=== PATIENT | female | born 1985 | race Caucasian/White ===

== ENCOUNTER 2022-05-20 09:57 | Emergency (ER) | payer OTHER ==
[2022-05-20] MEDS ORDERED: Sodium Bicarb 50 MEQ/50 ML Abboject 8.4% SYRINGE ONE (10:00)
[2022-05-20] MEDS ORDERED: Calcium Chloride 1 GM/10 ML Abboject SYRINGE ONE (10:00)
[2022-05-20] MEDS ORDERED: EPINEPHrine 1 MG/10 ML Abboject SYRINGE ONE (10:00)
== END 2022-05-20 10:03 | disposition expired ==
LOC: EDBD 09:57 → ERS 09:57
DX: I46.9 Cardiac arrest, cause unspecified (principal); R50.9 Fever, unspecified; J96.91 Respiratory failure, unspecified with hypoxia
CPT/HCPCS: 92950; 96372; 96374; 96375; J0171